=== PATIENT | female | born 1995 | race Two or more races ===

== ENCOUNTER 2017-03-03 21:37 | Emergency (ER) | payer MEDICAID, OTHER ==
[~2017-03-03] VITALS: Ht 157.5 cm; Wt 88.0 kg
[2017-03-04 00:42] LABS: Basophils # (auto) 0.3 uL; Basophils % (auto) 2.6 % (0.0-2.0); Eosinophils # (auto) 0.1 uL; Eosinophils % (auto) 0.9 % (0.0-7.0); Hematocrit 41.8 % (36.0-46.0); Hemoglobin 13.8 g/dL (12.2-16.2); Lymphocytes # (auto) 3.4 uL; Mean Corpuscular Hemoglobin 27.3 pg (28.0-32.0); Mean Corpuscular Hgb Conc. 32.9 g/dL (32.0-36.0); Mean Corpuscular Volume 82.8 fL (80.0-100.0); Mean Platelet Volume 11.4 fL (7.4-10.4); Monocytes # (auto) 0.5 uL; Monocytes % (auto) 4.5 % (0.0-12.0); Neutrophils # (auto) 7.4 uL; Platelet Count (auto) 151 10^3/uL (140-450); Red Cell Distribution Width 12.8 % (11.6-16.0); SUSPECT VIEW TRANSMISSION; White Blood Cell 11.7 10^3/uL (4.4-10.8)
[2017-03-04 00:59] LABS: Albumin 3.7 g/dL (3.4-5.0); Anion Gap 11 (5-15); Aspartate Aminotransferase 38 U/L (15-37); BUN/Creatinine Ratio 20.6; Blood Urea Nitrogen 13 mg/dL (7-18); Calcium 8.8 mg/dL (8.5-10.1); Carbon Dioxide 24 mmol/L (21-32); Chloride 107 mmol/L (98-107); GFR African American 151 mL/min; GFR Non-African American 124 mL/min; Glucose 90 mg/dL (74-106); Potassium 3.9 mmol/L (3.5-5.1); Sodium 142 mmol/L (136-145)
[2017-03-04 01:04] LABS: Alkaline Phosphatase 74 U/L (45-117); Bilirubin, Total 0.9 mg/dL (0.2-1.0); Total Protein 7.9 g/dL (6.4-8.2)
[2017-03-04] MEDS ORDERED: ASPirin 81 mg TAB PO ONE (02:30)
[2017-03-04] MEDS ORDERED: LORazepam 0.5 MG TAB PO ONE (02:30)
[2017-03-04 04:27] VITALS: BP 91/59
== END 2017-03-04 05:06 | disposition home or self-care (01) ==
LOC: ER 21:37
DX: R07.89 Other chest pain (principal); F41.9 Anxiety disorder, unspecified; R11.10 Vomiting, unspecified; F12.10 Cannabis abuse, uncomplicated; Z98.890 Other specified postprocedural states
CPT/HCPCS: 36415; 80053; 84484; 85025; 93005

== ENCOUNTER 2017-10-01 17:55 | Emergency (ER) | payer OTHER ==
[~2017-10-01] VITALS: Ht 157.5 cm; Wt 77.1 kg
[2017-10-01 19:28] LABS: Basophils # (auto) 0 uL; Basophils % (auto) 0.5 % (0.0-2.0); Eosinophils # (auto) 0 uL; Eosinophils % (auto) 0.2 % (0.0-7.0); Hematocrit 45.1 % (36.0-46.0); Lymphocytes # (auto) 0.9 uL; Lymphocytes % (auto) 21.4 % (10.0-50.0); Mean Corpuscular Hemoglobin 28.2 pg (28.0-32.0); Mean Corpuscular Hgb Conc. 33.4 g/dL (32.0-36.0); Mean Corpuscular Volume 84.5 fL (80.0-100.0); Monocytes # (auto) 0.5 uL; Neutrophils # (auto) 2.8 uL; Neutrophils % (auto) 65.9 % (37.0-80.0); Nucleated Red Blood Cells % 0.1 %; Platelet Count (auto) 130 10^3/uL (140-450); Red Blood Cells 5.33 10^6/uL (4.0-5.20); Red Cell Distribution Width 13.3 % (11.8-14.3); White Blood Cell 4.3 10^3/uL (4.4-10.8)
[2017-10-01 19:41] LABS: Calcium 9.1 mg/dL (8.5-10.1); Potassium 3.8 mmol/L (3.5-5.1)
[2017-10-02] MEDS ORDERED: SODIUM CHLORIDE 0.9% 1,000 ML IV ONE
[2017-10-02 00:40] VITALS: BP 113/65
== END 2017-10-01 23:35 | disposition home or self-care (01) ==
LOC: ER 18:03
DX: O20.0 Threatened abortion (principal); O23.41 Unspecified infection of urinary tract in pregnancy, first trimester; O99.281 Endocrine, nutritional and metabolic diseases complicating pregnancy, first trimester; E86.0 Dehydration; Z3A.01 Less than 8 weeks gestation of pregnancy
CPT/HCPCS: 36415; 76801; 80048; 84702; 85025; 99285; J7030

== ENCOUNTER 2018-05-11 07:50 | Observation (INO) | payer MEDICAID ==
[2018-05-11] MEDS ORDERED: SODIUM CHLORIDE 0.9% 1,000 ML IV SCH (08:02)
== END 2018-05-11 08:15 | disposition home or self-care (01) | DRG 566 ==
LOC: LDRP 07:50
PROVIDERS: ADMIT Obstetrics & Gynecology; ATTEND Obstetrics & Gynecology
DX: O42.92 Full-term premature rupture of membranes, unspecified as to length of time between rupture and onset of labor (principal); O62.9 Abnormality of forces of labor, unspecified; Z3A.38 38 weeks gestation of pregnancy
CPT/HCPCS: 59025; G0378

== ENCOUNTER 2023-03-20 13:33 | Emergency (ER) | payer MEDICAID ==
[~2023-03-20] VITALS: Ht 154.9 cm; Wt 80.5 kg
[2023-03-20 14:48] LABS: Urine Bacteria NONE SEEN /hpf (None Seen); Urine Blood TRACE /uL (Negative); Urine Mucus FEW (None Seen); Urine Specific Gravity 1.027 (1.001-1.035); Urine WBC 1 /hpf (0 - 5)
[2023-03-20 15:45] VITALS: BP 110/78
[2023-03-20] MEDS ORDERED: KETOROLAC TROMETH 60MG/2ML VIAL IM ONE (15:45)
[2023-03-20] MEDS ORDERED: IBUP1TAB5 PO (16:24)
== END 2023-03-20 16:31 | disposition home or self-care (01) ==
LOC: ER 13:33
DX: R07.89 Other chest pain (principal); M25.512 Pain in left shoulder; E11.9 Type 2 diabetes mellitus without complications; F17.210 Nicotine dependence, cigarettes, uncomplicated; Z98.890 Other specified postprocedural states; Z98.51 Tubal ligation status; Z91.013 Allergy to seafood
CPT/HCPCS: 71046; 73030; 81001; 81025; 96372; 99284; J1885

== ENCOUNTER 2025-03-23 12:24 | Emergency (ER) | payer MEDICAID ==
[~2025-03-23] VITALS: Ht 157.5 cm; Wt 81.0 kg
[~2025-03-23 12:24] MED LIST: ACET-1080 PO; AUG875T PO; IBUP1TAB5 PO; METH4PAK PO
[2025-03-23 12:32] VITALS: BP 124/95; PULSE 69; RESP 16; TEMP 98.6; O2SAT 96
--- NOTE | 2025-03-23 13:23 | ED.PDOC ---
History of Present Illness HPI Comments 29-year-old female with PMHx DM presents with a chief complaint of ear pain. Patient states that her pain is localized to her left ear. Patient mentions that she has been taking Tylenol at home for the pain, but it has not been helping. Patient mentions that she does have sick contacts at home. Denies blunt trauma (hand blow to the ear, fall, direct hit) Denies penetrating trauma (Q-tip use, match-stick, gunshot wound, welding spark) Denies ear trauma Denies barotrauma Denies blast injury Denies air travel Denies scuba diving Denies hearing loss Denies persistent ringing in the ear Denies fever chills night sweats unintentional weight loss Denies nausea vomiting severe headache or recent vision changes Chief Complaint: Earache Time Seen by MD: 13:06 Primary Care Provider: EMMA Reviewed Notes: Nurses Notes, Medications, Allergies Allergies: Coded Allergies: Fish Allergy (Verified Allergy, Intermediate, 03/20/23) NOT TO IODINE SHE STATES Home Meds Active Scripts Naproxen (Naproxen) 500 Mg Tab, 500 MG PO [id number] PRN for 10 Days, #20 TAB 0 Refills Prov:RAINER DALTON TELECOMMUNICATIONS PROJECT MANAGER 03/23/25 Loratadine (Loratadine) 10 Mg Tab, 10 MG PO DAILY for 10 Days, #10 TAB 0 Refills Prov:RAINER DALTON TELECOMMUNICATIONS PROJECT MANAGER 03/23/25 Amoxicillin & Pot Clavulanate (AUGMENTIN TABLET) 875 Mg Tb, 875 MG PO BID for 5 Days, #10 TAB 0 Refills Prov:RAINER DALTON NP 03/23/25 Acetaminophen (Tylenol 8 Hour Arthritis) 650 Mg Tab, 650 MG PO TID, #30 TAB Prov:DAVIDSON SANDS 07/05/23 Methylprednisolone (Medrol Dosepak) 4 Mg Last, 4 MG PO UD, #21 TAB UAD Prov:DAVIDSON SANDS 07/05/23 Amoxicillin & Pot Clavulanate (AUGMENTIN TABLET) 875 Mg Tb, 875 MG PO BID for 10 Days, #20 TAB Prov:DAVIDSON SANDS 07/05/23 Ibuprofen Micronized (Ibuprofen) 600 Mg Tab, 600 MG PO Q6HPRN PRN for 5 Days, #20 TAB Prov:DEIDRA STUART NP 03/20/23 Information Source: Patient Mode of Arrival: Ambulatory Severity: Moderate Timing: Days Duration: Since onset Prehospital treatment: None Past Medical History PAST MEDICAL HISTORY: DM Surgical History: , Tubal Ligation 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: No Pertinent 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 Family History Family History: Reviewed,noncontributory to illness Social History Smoker: Cigarettes Alcohol: Denies ETOH Use Drugs: Denies Drug Use Lives In: Home Constitutional: denies: chills, diaphoresis, fatigue, fever, malaise, sweats, weakness, others EENTM: reports: ear pain; denies: blurred vision, double vision, ear bleeding, ear discharge, ear drainage, ear ringing, eye pain, eye redness, hearing loss, mouth pain, mouth swelling, nasal discharge, nose bleeding, nose congestion, nose pain, photophobia, tearing, throat pain, throat swelling, voice changes, others Respiratory: denies: cough, hemoptysis, orthopnea, SOB at rest, shortness of breath, SOB with excertion, stridor, wheezing, others Cardiovascular: denies: chest pain, dizzy spells, diaphoresis, Dyspnea on exertion, edema, irregular heart beat, left arm pain, lightheadedness, palpitations, PND, syncope, others Gastrointestinal: denies: abdomen distended, abdominal pain, blood streaked bowels, constipated, diarrhea, dysphagia, difficulty swallowing, hematemesis, melena, nausea, poor appetite, poor fluid intake, rectal bleeding, rectal pain, vomiting, others Genitourinary: denies: abnormal vagina bleeding, burning, dyspareunia, dysuria, flank pain, frequency, hematuria, incontinence, pain, , vagina discharge, urgency, others Neurological: denies: dizziness, fainting, headache, left sided numbness, left sided weakness, numbness, paresthesia, pre-existing deficit, right sided numbness, right sided weakness, seizure, speech problems, tingling, tremors, weakness, others Musculoskeletal: denies: back pain, gout, joint pain, joint swelling, muscle pain, muscle stiffness, neck pain, others Integumetry: denies: bruises, change in color, change in hair/nails, dryness, laceration, lesions, lumps, rash, wounds, others Allergic/Immunocompromised: denies: Difficulty Healing, Frequent Infections, Hives, Itching, others Hematologic/Lymphatic: denies: anemia, blood clots, easy bleeding, easy bruising, swollen glands, others Endocrine: denies: excessive hunger, excessive sweating, excessive thirst, excessive urination, flushing, intolerance to cold, intolerance to heat, unexplained weight gain, unexplained weight loss, others Psychiatric: denies: anxiety, bipolar disorder, depression, hopeless, panic disorder, schizophrenia, sleepless, suicidal, others All Other Systems: Reviewed and Negative Physical Exam General Appearance: No Apparent Distress, Normal HEENT: Normal ENT Inspection, Pharynx Normal, TM Abnormal (L) Neck: Full Range of Motion, Non-Tender, Normal, Normal Inspection Respiratory: Chest Non-Tender, Lungs Clear, No Accessory Muscle Use, No Respiratory Distress, Normal Breath Sounds Cardiovascular: No Edema, No JVD, No Murmur, No Gallop, Normal Peripheral Pulses, Regular Rate/Rhythm Breast Exam: Deferred Gastrointestinal: No Organomegaly, Non Tender, No Pulsatile Mass, Normal Bowel Sounds, Soft Genitalia: Deferred Pelvic: Deferred Rectal: Deferred Extremities: No calf tenderness, Normal capillary refill, Normal inspection, Normal range of motion, Non-tender, No pedal edema Musculoskeletal : Apperance: Normal Neurologic: Alert, engineer process II-XII nml as Tested, No Motor Deficits, Normal Affect, Normal Mood, No Sensory Deficits Cerebellar Function: Normal Reflexes: Normal Skin: Dry, Normal Color, Warm Lymphatic: No Adenopathy Was a procedure done? Was a procedure done?: No Differential Dx Considerations may include: AOM, AOE X-Ray, Labs, Meds, VS Vital Signs Date Time Temp Pulse Resp B/P (MAP) Pulse Ox O2 Delivery O2 Flow Rate FiO2 03/23/25 12:32 98.6 69 16 124/95 (105) 96 98.6 Current Medications Medications (Trade) Dose Ordered Sig/Christie Route Start Time Stop Time Status Last Admin Dexamethasone Sodium Phosphate (Decadron Injection) 10 mg ONCE ONCE IM 03/23/25 13:30 03/23/25 13:31 DC 03/23/25 13:29 Ketorolac Tromethamine (Toradol Injection) 60 mg ONCE ONCE IM 03/23/25 13:30 03/23/25 13:31 DC 03/23/25 13:29 X-Ray, Labs, Meds, VS Comment 29-year-old female presents with a chief complaint of ear pain. Patient arrives alert and oriented, ABC's intact, afebrile, vital signs stable, saturating well in room air Prescribed p.o. antibiotics for presentation of symptoms Complete course of antibiotic therapy even if symptoms improve or resolve. There should be no leftover antibiotics as this can lead to antibiotic resistant bacteria and even worse infection. Patient verbalized understanding. Additional MDM Review of External, Non-ED records: External records reviewed. Discussion with independent historian (EMS, family) history obtained from the patient/parents (if applicable) at bedside Chronic conditions affecting care: None Social determinants of health affecting care: None Consideration of admission (observation or admission): I considered escalation of care to admission for this patient, however given the reassuring workup, the patient is safe for outpatient management. Discussion with the Radiology: No Tests considered but not performed: Prescription medication considered but not given: 12 lead EKG interpretation: Time of 1ST Reevaluation: 13:36 Reevaluation 1ST: Improved Patient Education/Counseling: Diagnosis, Treatment, Prognosis Family Education/Counseling: No Family Present SEPSIS Sepsis Screen Date sepsis recognized/suspect: Mar 23, 2025 Time Sepsis recognized/suspect: 1232 Recent Procedure: No On Antibiotic Therapy: No Respiratory Rate >20: No Heart Rate >90: No Temp<36 C (96.8 F) or >38.3 C: No SBP <90 or MAP <65 mmHG: No New Acute Mental Status Change: No Is the patient on CPAP, BIPAP,: No Orders/Vitals/Labs Vital Signs Date Time Temp Pulse Resp B/P (MAP) Pulse Ox O2 Delivery O2 Flow Rate FiO2 03/23/25 12:32 98.6 69 16 124/95 (105) 96 98.6 Departure 1 Departure Time of Disposition: 13:24 Impression: Primary Impression: Middle ear effusion Qualified Codes: H65.92 - Unspecified nonsuppurative otitis media, left ear Additional Impression: Pharyngitis Qualified Codes: J02.9 - Acute pharyngitis, unspecified Disposition: HOME / SELF CARE / HOMELESS Condition: Fair e-Prescriptions Naproxen (Naproxen) 500 Mg Tab 500 MG PO [id number] PRN for 10 Days, #20 TAB 0 Refills Prov: RAINER DALTON TELECOMMUNICATIONS PROJECT MANAGER 03/23/25 Loratadine (Loratadine) 10 Mg Tab 10 MG PO DAILY for 10 Days, #10 TAB 0 Refills Prov: RAINER DALTON NP 03/23/25 Amoxicillin & Pot Clavulanate (AUGMENTIN TABLET) 875 Mg Tb 875 MG PO BID for 5 Days, #10 TAB 0 Refills Prov: RAINER DALTON NP 03/23/25 Critical Care Note Critical Care Time?: No Stability Stability form required: No Heart Score Heart Score: Heart Score Response (Comments) Value History N/A 0 EKG N/A 0 Age N/A 0 Risk Factors N/A 0 Troponin N/A 0 Total 0 I personally scribed for RAINER DALTON NP ([email or web address]) on 03/23/25 at 13:22. Electronically submitted by Gregorio Ferrer ([email or web address]). RAINER DALTON NP Mar 23, 2025 13:22
[2025-03-23] MEDS ORDERED: NAPR-746 PO (13:26)
[2025-03-23] MEDS ORDERED: LORA-1126 PO (13:26)
[2025-03-23] MEDS ORDERED: AUG875T PO (13:26)
[2025-03-23] MEDS: DexAMETHasone SOD PHOS 10MG/1ML VIAL INJ IM ONE (13:29)
[2025-03-23] MEDS: KETOROLAC TROMETH 60MG/2ML VIAL IM ONE (13:29)
== END 2025-03-23 13:26 | disposition home or self-care (01) ==
LOC: ER 12:24
DX: H74.8X2 Other specified disorders of left middle ear and mastoid (principal); J02.9 Acute pharyngitis, unspecified; E11.9 Type 2 diabetes mellitus without complications; F17.210 Nicotine dependence, cigarettes, uncomplicated; Z98.51 Tubal ligation status; Z79.899 Other long term (current) drug therapy; Z98.890 Other specified postprocedural states; Z91.013 Allergy to seafood
CPT/HCPCS: 96372; 99284; J1100; J1885

== ENCOUNTER 2025-05-26 00:46 | Emergency (ER) | payer MEDICAID ==
[~2025-05-26] VITALS: Ht 154.9 cm; Wt 83.0 kg
[~2025-05-26 00:46] MED LIST changes: +LORA-1126 PO; +NAPR-746 PO
[2025-05-26] MEDS ORDERED: ACET500T58 PO (04:19)
[2025-05-26] MEDS ORDERED: AMOX875T4 PO (04:19)
--- NOTE | 2025-05-26 04:19 | ED.PDOC ---
Eye-HPI HPI Comments 30-year-old female presents to ER with complaints of toothache x2 days. Patient reports that she cracked a left upper and left lower molar tooth two days ago while chewing on peanuts and has since been experiencing pain localized to these two teeth. She rates her current toothache pain an 8/10 with radiation towards the left side of face and left ear. Reports that she has been taking ibuprofen for her pain without relief. Patient presents to ER ambulatory on arrival, with steady gait, in no distress. Denies fever, headache, nausea/vomiting, facial swelling/skin changes or any further symptoms/complaints Chief Complaint: Tooth Pain Time Seen by MD: 00:55 Primary Care Provider: EMMA Reviewed Notes: Nurses Notes, Medications, Allergies Allergies: Coded Allergies: Fish Allergy (Verified Allergy, Intermediate, 03/20/23) NOT TO IODINE SHE STATES Home Meds Active Scripts Amoxicillin & Pot Clavulanate (Amoxicillin/Potassium Cla) 875 Mg Tab, 1 TAB PO BID for 7 Days, #14 TAB 0 Refills Prov:ALISIA GODINEZ 05/26/25 Acetaminophen (Acetaminophen) 500 Mg Tab, 500 MG PO Q4HPRN, #30 TAB 0 Refills Prov:ALISIA GODINEZ 05/26/25 Naproxen (Naproxen) 500 Mg Tab, 500 MG PO [id number] PRN for 10 Days, #20 TAB 0 Refills Prov:RAINER DALTON NP 03/23/25 Loratadine (Loratadine) 10 Mg Tab, 10 MG PO DAILY for 10 Days, #10 TAB 0 Refills Prov:RAINER ADLTON NP 03/23/25 Amoxicillin & Pot Clavulanate (AUGMENTIN TABLET) 875 Mg Tb, 875 MG PO BID for 5 Days, #10 TAB 0 Refills Prov:RAINER DALTON NP 03/23/25 Acetaminophen (Tylenol 8 Hour Arthritis) 650 Mg Tab, 650 MG PO TID, #30 TAB Prov:DAVIDSON SANDS 07/05/23 Methylprednisolone (Medrol Dosepak) 4 Mg Last, 4 MG PO UD, #21 TAB UAD Prov:DAVIDSON SANDS 07/05/23 Amoxicillin & Pot Clavulanate (AUGMENTIN TABLET) 875 Mg Tb, 875 MG PO BID for 10 Days, #20 TAB Prov:DAVIDSON SANDS 07/05/23 Ibuprofen Micronized (Ibuprofen) 600 Mg Tab, 600 MG PO Q6HPRN PRN for 5 Days, #20 TAB Prov:DEIDRA STUART THERESE 03/20/23 Information Source: Patient Mode of Arrival: Ambulatory Past Medical History PAST MEDICAL HISTORY: DM Surgical History: , Tubal Ligation OPTICAL COATING TECHNICIAN History: No Pertinent OPTICAL COATING TECHNICIAN History Family History Family History: Unknown Social History Smoker: Cigarettes, Less Than 1 Pack/Day Alcohol: Denies ETOH Use Drugs: Denies Drug Use Lives In: Home Constitutional: denies: chills, diaphoresis, fatigue, fever, malaise, sweats, weakness, others EENTM: reports: others (As stated in HPI) Respiratory: denies: cough, hemoptysis, orthopnea, SOB at rest, shortness of breath, SOB with excertion, stridor, wheezing, others Cardiovascular: denies: chest pain, dizzy spells, diaphoresis, Dyspnea on exertion, edema, irregular heart beat, left arm pain, lightheadedness, palpitations, PND, syncope, others Gastrointestinal: denies: abdomen distended, abdominal pain, blood streaked bowels, constipated, diarrhea, dysphagia, difficulty swallowing, hematemesis, melena, nausea, poor appetite, poor fluid intake, rectal bleeding, rectal pain, vomiting, others Genitourinary: denies: abnormal vagina bleeding, burning, dyspareunia, dysuria, flank pain, frequency, hematuria, incontinence, pain, , vagina discharge, urgency, others Neurological: denies: dizziness, fainting, headache, left sided numbness, left sided weakness, numbness, paresthesia, pre-existing deficit, right sided numbness, right sided weakness, seizure, speech problems, tingling, tremors, weakness, others Musculoskeletal: denies: back pain, gout, joint pain, joint swelling, muscle pain, muscle stiffness, neck pain, others Integumetry: denies: bruises, change in color, change in hair/nails, dryness, laceration, lesions, lumps, rash, wounds, others Allergic/Immunocompromised: denies: Difficulty Healing, Frequent Infections, Hives, Itching, others Hematologic/Lymphatic: denies: anemia, blood clots, easy bleeding, easy bruising, swollen glands, others Endocrine: denies: excessive hunger, excessive sweating, excessive thirst, excessive urination, flushing, intolerance to cold, intolerance to heat, unexplained weight gain, unexplained weight loss, others Psychiatric: denies: anxiety, bipolar disorder, depression, hopeless, panic disorder, schizophrenia, sleepless, suicidal, others Physical Exam General Appearance: No Apparent Distress HEENT: PERRL/EOMI, Pharynx Normal, TMs Normal, Other (Chipped left upper and left lower 2nd molar teeth noted with mild surrounding gum swelling/erythema, no bleeding/drainage noted. No facial swelling/skin changes noted) Neck: Full Range of Motion, Non-Tender, Normal Respiratory: Chest Non-Tender, Lungs Clear, No Accessory Muscle Use, No Respiratory Distress, Normal Breath Sounds Cardiovascular: No Murmur, No Gallop, Regular Rate/Rhythm Breast Exam: Deferred Gastrointestinal: NOT DONE Genitalia: Deferred Pelvic: Deferred Rectal: Deferred Extremities: Normal capillary refill, Normal range of motion Neurologic: Alert, organ builder II-XII nml as Tested, No Motor Deficits, Normal Affect, Normal Mood, No Sensory Deficits Cerebellar Function: Normal Reflexes: Normal Skin: Dry, Normal Color, Warm Lymphatic: No Adenopathy Was a procedure done? Was a procedure done?: No Sedation Sedation?: No EENT DIFF Eye: N/A Mouth: Herpes Simplex, Thrush, Other (dental abscess, Puneet's angina) X-Ray, Labs, Meds, VS Vital Signs Date Time Temp Pulse Resp B/P (MAP) Pulse Ox O2 Delivery O2 Flow Rate FiO2 05/26/25 03:23 98.2 73 16 126/81 (96) 99 98.2 05/26/25 00:47 98.0 61 20 153/93 100 98.0 Hurricane spray ordered, patient educated on proper use/dosage Smoking cessation discussed and advised Advised to follow up with PCP and dentist in 1-2 days Patient verbalized understanding and agreeable with current plan of care Advised to return to ER immediately if symptoms worsen Time of 1ST Reevaluation: 03:54 Reevaluation 1ST: N/A Patient Education/Counseling: Diagnosis, Treatment, Prognosis, Need For Follow Up Family Education/Counseling: No Family Present SEPSIS Sepsis Screen Date sepsis recognized/suspect: May 26, 2025 Time Sepsis recognized/suspect: 50 Recent Procedure: No On Antibiotic Therapy: No Respiratory Rate >20: No Heart Rate >90: No Temp<36 C (96.8 F) or >38.3 C: No SBP <90 or MAP <65 mmHG: No New Acute Mental Status Change: No Is the patient on CPAP, BIPAP,: No Physician Orders Benzocaine (Dental) [place] (Hurricaine Sp (05/26/25 04:30) Vital Signs Date Time Temp Pulse Resp B/P (MAP) Pulse Ox O2 Delivery O2 Flow Rate FiO2 05/26/25 03:23 98.2 73 16 126/81 (96) 99 98.2 05/26/25 00:47 98.0 61 20 153/93 100 98.0 Departure 1 Departure Time of Disposition: 04:12 Impression: Primary Impression: Broken teeth Additional Impression: Dental infection Disposition: HOME / SELF CARE / HOMELESS Condition: Stable e-Prescriptions Amoxicillin & Pot Clavulanate (Amoxicillin/Potassium Cla) 875 Mg Tab 1 TAB PO BID for 7 Days, #14 TAB 0 Refills Prov: ALISIA GODINEZ 05/26/25 Acetaminophen (Acetaminophen) 500 Mg Tab 500 MG PO Q4HPRN, #30 TAB 0 Refills Prov: ALISIA GODINEZ 05/26/25 Discharged With: Self Critical Care Note Critical Care Time?: No Stability Stability form required: No Heart Score Heart Score: Heart Score Response (Comments) Value History N/A 0 EKG N/A 0 Age N/A 0 Risk Factors N/A 0 Troponin N/A 0 Total 0 ALISIA GODINEZ May 26, 2025 04:19
[2025-05-26] MEDS: BENZOCAINE (DENTAL) 20 % SPRAY 60ML MT ONE (04:47)
[2025-05-26 04:57] VITALS: BP 141/95; PULSE 66; RESP 16; TEMP 98.7; O2SAT 100
== END 2025-05-26 05:00 | disposition home or self-care (01) ==
LOC: ER 00:46
DX: S02.5XXA Fracture of tooth (traumatic), initial encounter for closed fracture (principal); K04.7 Periapical abscess without sinus; F17.210 Nicotine dependence, cigarettes, uncomplicated; E11.9 Type 2 diabetes mellitus without complications; Z98.51 Tubal ligation status; Z79.899 Other long term (current) drug therapy; Z91.013 Allergy to seafood; X58.XXXA Exposure to other specified factors, initial encounter; Y93.89 Activity, other specified; Y92.89 Other specified places as the place of occurrence of the external cause; Y99.8 Other external cause status

== ENCOUNTER 2025-06-06 09:23 | Emergency (ER) | payer MEDICAID ==
[~2025-06-06] VITALS: Ht 154.9 cm; Wt 78.2 kg
[~2025-06-06 09:23] MED LIST changes: +ACET500T58 PO; +AMOX875T4 PO
[2025-06-06 10:04] VITALS: BP 127/91; PULSE 63; RESP 16; TEMP 98.7; O2SAT 98
[2025-06-06] MEDS: HYDROcodone-ACET 10/325MG TAB PO ONE (10:04)
--- NOTE | 2025-06-06 10:06 | ED.PDOC ---
History of Present Illness HPI Comments 30 y/o F, presents to the ED for CC of tooth pain. Patient states, she has been having left lower and left upper molar pain since, 05/16/25. Patient reports, that the pain use to be localized to these two teeth however, pain has now increased radiating to her left cheek. Patient endorses, being seen by dentist however, symptoms have not ceased. Patient denies fever, ear-ringing, chills, or sweats. No other symptoms or modifying factors are present at this time. Chief Complaint: Tooth Pain Time Seen by MD: 10:00 Primary Care Provider: EMMA Reviewed Notes: Nurses Notes, Medications, Allergies Allergies: Coded Allergies: Fish Allergy (Verified Allergy, Intermediate, 03/20/23) NOT TO IODINE SHE STATES Home Meds Active Scripts Amoxicillin & Pot Clavulanate (Amoxicillin/Potassium Cla) 875 Mg Tab, 1 TAB PO BID for 7 Days, #14 TAB 0 Refills Prov:ALISIA GODINEZ 05/26/25 Acetaminophen (Acetaminophen) 500 Mg Tab, 500 MG PO Q4HPRN, #30 TAB 0 Refills Prov:ALISIA GODINEZ 05/26/25 Naproxen (Naproxen) 500 Mg Tab, 500 MG PO [id number] PRN for 10 Days, #20 TAB 0 Refills Prov:RAINER DALTON NP 03/23/25 Loratadine (Loratadine) 10 Mg Tab, 10 MG PO DAILY for 10 Days, #10 TAB 0 Refills Prov:RAINER DALTON NP 03/23/25 Amoxicillin & Pot Clavulanate (AUGMENTIN TABLET) 875 Mg Tb, 875 MG PO BID for 5 Days, #10 TAB 0 Refills Prov:RAINER DALTON NP 03/23/25 Acetaminophen (Tylenol 8 Hour Arthritis) 650 Mg Tab, 650 MG PO TID, #30 TAB Prov:DAVIDSON SANDS 07/05/23 Methylprednisolone (Medrol Dosepak) 4 Mg Last, 4 MG PO UD, #21 TAB UAD Prov:DAVIDSON SANDS 07/05/23 Amoxicillin & Pot Clavulanate (AUGMENTIN TABLET) 875 Mg Tb, 875 MG PO BID for 10 Days, #20 TAB Prov:DAVIDSON SANDS 07/05/23 Ibuprofen Micronized (Ibuprofen) 600 Mg Tab, 600 MG PO Q6HPRN PRN for 5 Days, #20 TAB Prov:DEIDRA STUART Skinny SALEH 03/20/23 Information Source: Patient Mode of Arrival: Ambulatory Severity: Moderate Timing: Days Duration: Since onset Prehospital treatment: None Past Medical History PAST MEDICAL HISTORY: DM Surgical History: , Tubal Ligation DIRECTOR OF GUIDANCE History: No Pertinent DIRECTOR OF GUIDANCE History Family History Family History: Unknown Social History Smoker: Cigarettes, Less Than 1 Pack/Day Alcohol: Denies ETOH Use Drugs: Denies Drug Use Lives In: Home Constitutional: denies: chills, diaphoresis, fatigue, fever, malaise, sweats, weakness, others EENTM: reports: mouth pain, mouth swelling, others (LEFT TOOTH PAIN); denies: blurred vision, double vision, ear bleeding, ear discharge, ear drainage, ear pain, ear ringing, eye pain, eye redness, hearing loss, nasal discharge, nose bleeding, nose congestion, nose pain, photophobia, tearing, throat pain, throat swelling, voice changes Respiratory: denies: cough, hemoptysis, orthopnea, SOB at rest, shortness of breath, SOB with excertion, stridor, wheezing, others Cardiovascular: denies: chest pain, dizzy spells, diaphoresis, Dyspnea on exertion, edema, irregular heart beat, left arm pain, lightheadedness, palpitations, PND, syncope, others Gastrointestinal: denies: abdomen distended, abdominal pain, blood streaked bowels, constipated, diarrhea, dysphagia, difficulty swallowing, hematemesis, melena, nausea, poor appetite, poor fluid intake, rectal bleeding, rectal pain, vomiting, others Genitourinary: denies: abnormal vagina bleeding, burning, dyspareunia, dysuria, flank pain, frequency, hematuria, incontinence, pain, , vagina discharge, urgency, others Neurological: denies: dizziness, fainting, headache, left sided numbness, left sided weakness, numbness, paresthesia, pre-existing deficit, right sided numbness, right sided weakness, seizure, speech problems, tingling, tremors, weakness, others Musculoskeletal: denies: back pain, gout, joint pain, joint swelling, muscle pain, muscle stiffness, neck pain, others Integumetry: denies: bruises, change in color, change in hair/nails, dryness, laceration, lesions, lumps, rash, wounds, others Allergic/Immunocompromised: denies: Difficulty Healing, Frequent Infections, Hives, Itching, others Hematologic/Lymphatic: denies: anemia, blood clots, easy bleeding, easy bruising, swollen glands, others Endocrine: denies: excessive hunger, excessive sweating, excessive thirst, excessive urination, flushing, intolerance to cold, intolerance to heat, unexplained weight gain, unexplained weight loss, others Psychiatric: denies: anxiety, bipolar disorder, depression, hopeless, panic disorder, schizophrenia, sleepless, suicidal, others All Other Systems: Reviewed and Negative Physical Exam General Appearance: Moderate Distress HEENT: Normal ENT Inspection, Pharynx Normal, TMs Normal Neck: Full Range of Motion, Non-Tender, Normal, Normal Inspection Respiratory: Chest Non-Tender, Lungs Clear, No Accessory Muscle Use, No Respiratory Distress, Normal Breath Sounds Cardiovascular: No Edema, No JVD, No Murmur, No Gallop, Normal Peripheral Pulses, Regular Rate/Rhythm Breast Exam: Deferred Gastrointestinal: No Organomegaly, Non Tender, No Pulsatile Mass, Normal Bowel Sounds, Soft Genitalia: Deferred Pelvic: Deferred Rectal: Deferred Extremities: No calf tenderness, Normal capillary refill, Normal inspection, Normal range of motion, Non-tender, No pedal edema Musculoskeletal : Apperance: Normal Neurologic: Alert, information technology security analyst II-XII nml as Tested, No Motor Deficits, Normal Affect, Normal Mood, No Sensory Deficits Cerebellar Function: Normal Reflexes: Normal Skin: Dry, Normal Color, Warm Peripheral Pulses: 3+ Radial (R), 3+ Radial (L) Lymphatic: No Adenopathy Was a procedure done? Was a procedure done?: No Differential Dx Considerations may include: DENTAL CARIES, DENTAL ABSCESS, X-Ray, Labs, Meds, VS Vital Signs Date Time Temp Pulse Resp B/P (MAP) Pulse Ox O2 Delivery O2 Flow Rate FiO2 06/06/25 10:04 98.7 63 17 127/91 (103) 98 98.7 06/06/25 10:04 63 16 98 Room Air 06/06/25 09:24 97.8 60 16 144/81 97 97.8 Current Medications Medications (Trade) Dose Ordered Sig/Christie Route Start Time Stop Time Status Last Admin Acetaminophen/ Hydrocodone Bitart ([place] 325MG Tab) 1 tab ONCE ONCE PO 06/06/25 10:00 06/06/25 10:01 DC 06/06/25 10:04 Patient alert. Came in because of tooth decay. Vitals stable. Answering questions. Was seen here last week for the same symptom. She has not gone to a dentist. On examination she does have infection of the base of the tooth. Was given prescription Augmentin antibiotic. Explained to the patient. Was told to follow up with her primary care physician. Was told to come back if there is any problem. Time of 1ST Reevaluation: 10:30 Reevaluation 1ST: Unchanged Patient Education/Counseling: Diagnosis, Treatment Family Education/Counseling: No Family Present SEPSIS Sepsis Screen Date sepsis recognized/suspect: Jun 06, 2025 Time Sepsis recognized/suspect: 924 Recent Procedure: No On Antibiotic Therapy: No Respiratory Rate >20: No Heart Rate >90: No Temp<36 C (96.8 F) or >38.3 C: No SBP <90 or MAP <65 mmHG: No New Acute Mental Status Change: No Is the patient on CPAP, BIPAP,: No Vital Signs Date Time Temp Pulse Resp B/P (MAP) Pulse Ox O2 Delivery O2 Flow Rate FiO2 06/06/25 10:04 98.7 63 17 127/91 (103) 98 98.7 06/06/25 10:04 63 16 98 Room Air 06/06/25 09:24 97.8 60 16 144/81 97 97.8 Medications Medications Dose Ordered Sig/Christie Route Start Time Stop Time Status Last Admin Dose Admin Acetaminophen/ Hydrocodone Bitart 1 tab ONCE ONCE PO 06/06/25 10:00 06/06/25 10:01 DC 06/06/25 10:04 Departure 1 Departure Time of Disposition: 11:01 Impression: Primary Impression: Dental caries Disposition: HOME / SELF CARE / HOMELESS Condition: Good Additional Instructions: Discharge Note: Continue on your medications. Do not drive when taking narcotics. Drink plenty of fluids. Follow up with your primary Dentist. Take your prescriptions as ordered. If your condition becomes worse call and follow up with your primary DrCamilo dan in structions or return to the ER if needed. Thank you for visiting [facility]. e-Prescriptions Ibuprofen Micronized (MOTRIN TABLET) 600 Mg Tb 600 MG PO TID PRN for 5 Days, #15 TAB *Black box warning-NSAIDS can increase risk of [place] & hypertension, GI irritation, ulceration, bleed, perferation. Do not use post cardiac surgery. Use short duration/lowest effective dose. Prov: ORI RACHEL MD 06/06/25 Amoxicillin & Pot Clavulanate (Augmentin) 500 Mg Tab 1 TAB PO BID for 7 Days, #14 TAB Prov: ORI RACHEL MD 06/06/25 Discharged With: Self Critical Care Note Critical Care Time?: No Stability Stability form required: No Heart Score Heart Score: Heart Score Response (Comments) Value History N/A 0 EKG N/A 0 Age N/A 0 Risk Factors N/A 0 Troponin N/A 0 Total 0 I personally scribed for ORI RACHEL MD ([email or web address]) on 06/06/25 at 10:06. Electronically submitted by Shirley Ann ([email or web address]). I personally scribed for ORI RACHEL MD ([email or web address]) on 06/06/25 at 10:10. Electronically submitted by Shirley Ann ([email or web address]). I personally scribed for ORI RACHEL MD ([email or web address]) on 06/06/25 at 10:18. Electronically submitted by Shirley Ann ([email or web address]). ORI RACHEL MD Jun 06, 2025 10:06
[2025-06-06] MEDS ORDERED: AMOX500T86 PO (11:02)
[2025-06-06] MEDS ORDERED: IBU600T PO (11:02)
== END 2025-06-06 11:13 | disposition home or self-care (01) ==
LOC: ER 09:23
DX: K02.9 Dental caries, unspecified (principal); E11.9 Type 2 diabetes mellitus without complications; F17.210 Nicotine dependence, cigarettes, uncomplicated; Z98.51 Tubal ligation status; Z79.899 Other long term (current) drug therapy

== ENCOUNTER 2025-10-04 11:16 | Emergency (ER) | payer MEDICAID ==
[~2025-10-04] VITALS: Ht 154.9 cm; Wt 71.9 kg
[~2025-10-04 11:16] MED LIST changes: +AMOX500T86 PO; +IBU600T PO
--- NOTE | 2025-10-04 11:25 | ECG ---
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
--- NOTE | 2025-10-04 11:36 | ED.PDOC ---
HPI Comments 30 year old female with PMHX HTN presents to the ED with a chief complaint of chest pain onset 2 days. Patient states she has been experiencing substernal chest pain radiating to LT arm for the past 2 days. She describes pain as constant, chest is tender to touch, has taken Tylenol and Ibuprofen with no relief of symptoms. Patient also states she has been under stress recently. Denies shortness of breath, nausea, vomiting, diarrhea, headache, dizziness, numbness/tingling, fever, chills. No other symptoms or minifying factors present at this time. Chief Complaint: Chest Pain Time Seen by MD: 11:25 Primary Care Provider: EMMA Reviewed Notes: Medications, Allergies Allergies: Coded Allergies: Fish Allergy (Verified Allergy, Intermediate, 03/20/23) NOT TO IODINE SHE STATES Home Meds Active Scripts Ibuprofen Micronized (MOTRIN TABLET) 600 Mg Tb, 600 MG PO TID PRN for 5 Days, #15 TAB *Black box warning-NSAIDS can increase risk of [place] & hypertension, GI irritation, ulceration, bleed, perferation. Do not use post cardiac surgery. Use short duration/lowest effective dose. Prov:ORI RACHEL MD 06/06/25 Amoxicillin & Pot Clavulanate (Augmentin) 500 Mg Tab, 1 TAB PO BID for 7 Days, #14 TAB Prov:ORI RACHEL MD 06/06/25 Amoxicillin & Pot Clavulanate (Amoxicillin/Potassium Cla) 875 Mg Tab, 1 TAB PO BID for 7 Days, #14 TAB 0 Refills Prov:ALISIA GODINEZ 05/26/25 Acetaminophen (Acetaminophen) 500 Mg Tab, 500 MG PO Q4HPRN, #30 TAB 0 Refills Prov:ALISIA GODINEZ 05/26/25 Naproxen (Naproxen) 500 Mg Tab, 500 MG PO [id number] PRN for 10 Days, #20 TAB 0 Refills Prov:RAINER DALTON NP 03/23/25 Loratadine (Loratadine) 10 Mg Tab, 10 MG PO DAILY for 10 Days, #10 TAB 0 Refills Prov:RAINER DALTON NP 03/23/25 Amoxicillin & Pot Clavulanate (AUGMENTIN TABLET) 875 Mg Tb, 875 MG PO BID for 5 Days, #10 TAB 0 Refills Prov:RAINER DALTON GLAZE WIPER 03/23/25 Acetaminophen (Tylenol 8 Hour Arthritis) 650 Mg Tab, 650 MG PO TID, #30 TAB Prov:DAVIDSON SANDS 07/05/23 Methylprednisolone (Medrol Dosepak) 4 Mg Last, 4 MG PO UD, #21 TAB UAD Prov:DAVIDSON SANDS 07/05/23 Amoxicillin & Pot Clavulanate (AUGMENTIN TABLET) 875 Mg Tb, 875 MG PO BID for 10 Days, #20 TAB Prov:DAVIDSON SANDS 07/05/23 Ibuprofen Micronized (Ibuprofen) 600 Mg Tab, 600 MG PO Q6HPRN PRN for 5 Days, #20 TAB Prov:DEIDRA STUART GLAZE WIPER 03/20/23 Information Source: Patient Mode of Arrival: Ambulatory Severity: Moderate Timing: Days Duration: Since onset Prehospital treatment: None Location: Substernal Radiation: Arm (L) Quality: Sharp Onset: At Rest Cardiac Risk Factors: Diabetes PE Risk Factors: None History of: None Modifying Factors: Nothing Past Medical History PAST MEDICAL HISTORY: Depression, DM Surgical History: , Tubal Ligation SURVEY STATISTICIAN History: No Pertinent SURVEY STATISTICIAN History Family History Family History: Unknown Social History Smoker: Cigarettes, Less Than 1 Pack/Day Alcohol: Denies ETOH Use Drugs: Denies Drug Use Lives In: Home Constitutional: denies: chills, diaphoresis, fatigue, fever, malaise, sweats, weakness, others EENTM: denies: blurred vision, double vision, ear bleeding, ear discharge, ear drainage, ear pain, ear ringing, eye pain, eye redness, hearing loss, mouth pain, mouth swelling, nasal discharge, nose bleeding, nose congestion, nose pain, photophobia, tearing, throat pain, throat swelling, voice changes, others Respiratory: denies: cough, hemoptysis, orthopnea, SOB at rest, shortness of breath, SOB with excertion, stridor, wheezing, others Cardiovascular: reports: chest pain; denies: dizzy spells, diaphoresis, Dyspnea on exertion, edema, irregular heart beat, left arm pain, lightheadedness, palpitations, PND, syncope, others Gastrointestinal: denies: abdomen distended, abdominal pain, blood streaked bowels, constipated, diarrhea, dysphagia, difficulty swallowing, hematemesis, melena, nausea, poor appetite, poor fluid intake, rectal bleeding, rectal pain, vomiting, others Genitourinary: denies: abnormal vagina bleeding, burning, dyspareunia, dysuria, flank pain, frequency, hematuria, incontinence, pain, , vagina discharge, urgency, others Neurological: denies: dizziness, fainting, headache, left sided numbness, left sided weakness, numbness, paresthesia, pre-existing deficit, right sided numbness, right sided weakness, seizure, speech problems, tingling, tremors, weakness, others Musculoskeletal: reports: others (LT arm pain); denies: back pain, gout, joint pain, joint swelling, muscle pain, muscle stiffness, neck pain Integumetry: denies: bruises, change in color, change in hair/nails, dryness, laceration, lesions, lumps, rash, wounds, others Allergic/Immunocompromised: denies: Difficulty Healing, Frequent Infections, Hives, Itching, others Hematologic/Lymphatic: denies: anemia, blood clots, easy bleeding, easy bruising, swollen glands, others Endocrine: denies: excessive hunger, excessive sweating, excessive thirst, excessive urination, flushing, intolerance to cold, intolerance to heat, unexplained weight gain, unexplained weight loss, others Psychiatric: denies: anxiety, bipolar disorder, depression, hopeless, panic disorder, schizophrenia, sleepless, suicidal, others All Other Systems: Reviewed and Negative Physical Exam General Appearance: Moderate Distress, Normal HEENT: Normal ENT Inspection, Pharynx Normal, TMs Normal Neck: Full Range of Motion, Non-Tender, Normal, Normal Inspection Respiratory: Chest Non-Tender, Lungs Clear, No Accessory Muscle Use, No Respiratory Distress, Normal Breath Sounds Cardiovascular: No Edema, No JVD, No Murmur, No Gallop, Normal Peripheral Pulses, Regular Rate/Rhythm Breast Exam: Deferred Gastrointestinal: No Organomegaly, Non Tender, No Pulsatile Mass, Normal Bowel Sounds, Soft Genitalia: Deferred Pelvic: Deferred Rectal: Deferred Extremities: No calf tenderness, Normal capillary refill, Normal inspection, Normal range of motion, Non-tender, No pedal edema Musculoskeletal : Apperance: Normal Neurologic: Alert, fusion operator II-XII nml as Tested, No Motor Deficits, Normal Affect, Normal Mood, No Sensory Deficits Cerebellar Function: Normal Reflexes: Normal Skin: Dry, Normal Color, Warm Peripheral Pulses: 3+ Radial (R), 3+ Radial (L) Lymphatic: No Adenopathy EKG EKG : Pulse Rate (adult): 90 Cardiac Rhythm: NSR Was a procedure done? Was a procedure done?: No CP Differential Dx Differential Diagnosis: A-fib, A-Flutter, Angina, Anxiety / Panic Attack, Atrial Dysrhythmia, Electrolyte Disorder Differential Diagnosis: Chest Wall Pain X-Ray, Labs, Meds, VS Vital Signs Date Time Temp Pulse Resp B/P (MAP) Pulse Ox O2 Delivery O2 Flow Rate FiO2 10/04/25 16:29 97.7 110 19 152/91 (111) 98 97.7 10/04/25 15:00 97.9 88 17 138/75 (96) 97 97.9 10/04/25 12:14 96 18 99 Room Air* 0 21 10/04/25 12:14 98.3 89 18 146/93 (110) 99 98.3 10/04/25 11:36 90 10/04/25 11:24 90 10/04/25 11:17 97.3 80 15 128/98 98 97.3 Lab Test 10/04/25 12:55 10/04/25 11:28 Range/Units Troponin I High Sensitivity < 3 L < 3 L </=34 ng/L White Blood Count 10.3 4.4-10.8 10^3/uL Red Blood Count 5.59 H 4.0-5.20 10^6/uL Hemoglobin 15.6 12.2-16.2 g/dL Hematocrit 45.9 36.0-46.0 % Mean Corpuscular Volume 82.1 80.0-100.0 fL Mean Corpuscular Hemoglobin 27.9 L 28.0-32.0 pg Mean Corpuscular Hemoglobin Concent 33.9 32.0-36.0 g/dL Red Cell Distribution Width 12.9 11.8-14.3 % Platelet Count 212 140-450 10^3/uL Mean Platelet Volume 10.3 6.9-10.8 fL Neutrophils (%) (Auto) 73.8 37.0-80.0 % Lymphocytes (%) (Auto) 19.5 10.0-50.0 % Monocytes (%) (Auto) 5.9 0.0-12.0 % Eosinophils (%) (Auto) 0.2 0.0-7.0 % Basophils (%) (Auto) 0.6 0.0-2.0 % Neutrophils # (Auto) 7.6 1.6-8.6 10 ^3/uL Lymphocytes # (Auto) 2.0 0.4-5.4 10 ^3/uL Monocytes # (Auto) 0.6 0-1.3 10 ^3/uL Eosinophils # (Auto) 0 0-0.8 10 ^3/uL Basophils # (Auto) 0.1 0-0.2 10 ^3/uL Nucleated Red Blood Cells 0.2 % Sodium Level 143 136-145 mmol/L Potassium Level 3.2 L 3.5-5.1 mmol/L Chloride Level 105 98-107 mmol/L Carbon Dioxide Level 26 20-31 mmol/L Anion Gap 12 5-15 Blood Urea Nitrogen 7 L 9-23 mg/dL Creatinine 0.73 0.550-1.02 mg/dL Glomerular Filtration Rate Calc 112 >90 mL/min BUN/Creatinine Ratio 9.6 L 10.0-20.0 Serum Glucose 127 H 74-106 mg/dL Calcium Level 10.1 8.7-10.4 mg/dL Current Medications Medications (Trade) Dose Ordered Sig/Christie Route Start Time Stop Time Status Last Admin Lorazepam (Ativan Tablet) 1 mg ONCE ONCE PO 10/04/25 12:15 10/04/25 12:16 DC 10/04/25 12:27 Potassium Bicarbonate (Klor-Con/Ef) 25 meq ONCE ONCE PO 10/04/25 15:45 10/04/25 15:46 DC 10/04/25 15:59 Patient alert. Came in because of chest discomfort. Vitals stable. Answering questions. Was given Ativan. History of anxiety. Potassium slightly low. Was given potassium. WBC within normal limits. Hemoglobin within normal limits. Cardiac marker within normal limits. No leg swelling. No shortness a breath. No calf tenderness. No acute process. Patient continues to have nausea vomiting. Continues to have chest pain. Possibly need echocardiogram. Explained to the patient. Continue monitoring. Time of 1ST Reevaluation: 11:55 Reevaluation 1ST: Unchanged Time of 2ND Reevaluation: 15:40 Reevaluation 2ND: Improved Patient Education/Counseling: Diagnosis, Treatment, Prognosis Family Education/Counseling: No Family Present SEPSIS Sepsis Screen Date sepsis recognized/suspect: Oct 04, 2025 Time Sepsis recognized/suspect: 1120 Recent Procedure: No On Antibiotic Therapy: No Respiratory Rate >20: No Heart Rate >90: No Temp<36 C (96.8 F) or >38.3 C: No SBP <90 or MAP <65 mmHG: No New Acute Mental Status Change: No Is the patient on CPAP, BIPAP,: No Physician Orders Electrocardigram (10/04/25 12:21) Electrocardigram (10/04/25 14:21) Urinalysis (10/04/25 11:33) Vital Signs Date Time Temp Pulse Resp B/P (MAP) Pulse Ox O2 Delivery O2 Flow Rate FiO2 10/04/25 16:29 97.7 110 19 152/91 (111) 98 97.7 10/04/25 15:00 97.9 88 17 138/75 (96) 97 97.9 10/04/25 12:14 96 18 99 Room Air* 0 21 10/04/25 12:14 98.3 89 18 146/93 (110) 99 98.3 10/04/25 11:36 90 10/04/25 11:24 90 10/04/25 11:17 97.3 80 15 128/98 98 97.3 Laboratory Tests Test 10/04/25 11:28 White Blood Count 10.3 10^3/uL (4.4-10.8) Medications Medications Dose Ordered Sig/Christie Route Start Time Stop Time Status Last Admin Dose Admin Lorazepam 1 mg ONCE ONCE PO 10/04/25 12:15 10/04/25 12:16 DC 10/04/25 12:27 Potassium Bicarbonate 25 meq ONCE ONCE PO 10/04/25 15:45 10/04/25 15:46 DC 10/04/25 15:59 Departure 1 Departure Time of Disposition: 15:41 Impression: Primary Impression: Chest pain of unknown etiology Additional Impressions: Anxiety Hypokalemia Disposition: ADMITTED INPATIENT Admit to: Med Surg Condition: Guarded Critical Care Note Critical Care Time?: No Stability Stability form required: No Heart Score Heart Score: Heart Score Response (Comments) Value History Slightly Suspicious 0 EKG Normal 0 Age <45 0 Risk Factors No known risk factors 0 Troponin Normal limit 0 Total 0 I personally scribed for ORI RACHEL MD ([email or web address]) on 10/04/25 at 11:36. Electronically submitted by Sandra Harrison ([email or web address]). I personally scribed for ORI RACHEL MD ([email or web address]) on 10/04/25 at 11:36. Electronically submitted by Sandra Harrison [email or web address]). ORI RACHEL MD Oct 04, 2025 11:36
[2025-10-04 11:52] LABS: Hematocrit 45.9 % (36.0-46.0); Hemoglobin 15.6 g/dL (12.2-16.2); Mean Corpuscular Hemoglobin 27.9 pg (28.0-32.0); Mean Corpuscular Volume 82.1 fL (80.0-100.0); Nucleated Red Blood Cells % 0.2 %
[2025-10-04 12:02] LABS: Anion Gap 12 (5-15); Carbon Dioxide 26 mmol/L (20-31); Chloride 105 mmol/L (98-107); Sodium 143 mmol/L (136-145)
[2025-10-04 12:03] LABS: Calcium 10.1 mg/dL (8.7-10.4)
[2025-10-04 12:08] LABS: BUN/Creatinine Ratio 9.6 (10.0-20.0)
[2025-10-04] MEDS: LORazepam 2MG/ML-1ML VIAL IV ONE (12:12)
[2025-10-04 12:13] LABS: Blood Urea Nitrogen 7 mg/dL (9-23); Glucose 127 mg/dL (74-106); Potassium 3.2 mmol/L (3.5-5.1)
[2025-10-04 12:14] VITALS: PULSE 96; RESP 18; O2SAT 99
[2025-10-04] MEDS: LORazepam 0.5 MG TAB PO ONE (12:27)
[2025-10-04] MEDS: POTASSIUM EFFERVESENT TAB 25 MEQ PO ONE (15:59)
[2025-10-04] MEDS ORDERED: MORPHINE SULFATE 4 MG/ML SYR/VIAL IV ONE (17:00)
[2025-10-04 18:58] VITALS: TEMP 98.3; O2SAT 97
[2025-10-04] MEDS: PROCHLORPERAZINE EDISYLATE 5 MG/ML 2ML VIAL IV ONE (19:26)
[2025-10-04 19:47] VITALS: BP 134/93; PULSE 87; RESP 16
[2025-10-04] MEDS: HYDROmorphone HCL 2 MG/ML VL/or syr IV ONE (19:47)
== END 2025-10-04 20:38 | disposition left against medical advice (07) ==
LOC: ER 11:16
DX: R07.89 Other chest pain (principal); F41.9 Anxiety disorder, unspecified; E87.6 Hypokalemia; F17.210 Nicotine dependence, cigarettes, uncomplicated; E11.9 Type 2 diabetes mellitus without complications; F32.A Depression, unspecified; I10 Essential (primary) hypertension; Z79.899 Other long term (current) drug therapy; Z98.890 Other specified postprocedural states; Z98.51 Tubal ligation status
CPT/HCPCS: 36415; 80048; 84484; 85025; 85379; 93005; 96374; 96375; 99285; J0780; J1171